=== PATIENT | male | born 1955 | race Caucasian/White ===

== ENCOUNTER 2017-01-20 17:54 | Inpatient (IN) | payer OTHER ==
[~2017-01-20] VITALS: Ht 182.9 cm; Wt 64.5 kg
[2017-01-20 19:10] VITALS: BP 129/70; PULSE 64; RESP 18; O2SAT 98
[2017-01-20] MEDS ORDERED: IBUP200C PO (20:46)
[2017-01-20] MEDS ORDERED: MULT-1018 PO (20:46)
[2017-01-20] MEDS ORDERED: POLY17PO6 PO (20:47)
[2017-01-20] MEDS ORDERED: Alum-Mag Hydrox-Simeth 30 mL Suspension PO PRN (21:30)
[2017-01-20] MEDS ORDERED: Ondansetron 2 mg/mL 2 mL Inj IVPUSH PRN (21:30)
[2017-01-20] MEDS ORDERED: Polyethylene Glycol (PEG) 17 Gm Powder PO PRN (21:30)
[2017-01-20 23:16] LABS: BASOPHILS % (AUTO) 0.1 % (0-3); EOSINOPHILS % (AUTO) 0.4 % (0-5); MONOCYTES % (AUTO) 4.7 % (4-12); Mean Corpuscular Hemoglobin 30.1 pg (27.0-35.0); Mean Corpuscular Volume 90.3 fL (81-100); Platelet Count 363 bil/L (150-400)
--- NOTE | 2017-01-20 23:22 | PCM.HPMED ---
Subjective Date of Service Jan 20, 2017 Primary Provider: Admitting Physician: Sawyer Patel DO Primary Care Physician: Anthony Gomez MD Attending Physician: Sawyer Patel DO Admit Status: Direct Admit (transfer from [place]) Chief Complaint: Abdominal pain and jaundice History of Present Illness: 61yo Patient who is been fairly healthy his entire life other than heavy alcohol use and tobacco use disorder as well as 2 spontaneous pneumothorax 20 years prior requiring pleurodesis presents with 6 weeks of abdominal pain and jaundice. The patient states that approximately 6 weeks ago he began to notice yellowing of his skin and the abdominal pain. The patient describes the abdominal pain as 12 out of 10 at its worst and lasting 12 hours at its longest however normally approximately 6 hours. The patient states that the duration of the pain has been increasing over the last 6 weeks. The patient describes the pain becoming worse with eating and improves after having a bowel movement. The patient states that the pain seems to move through his abdomen as the food moves through his intestines. The patient denies any history of this previously. Since the patient became jaundiced he has also noticed a firm mass in his epigastrium with some distention of his abdomen. The patient has reportedly lost approximately 20 pounds over the last 6 months. The patient reports drinking upwards to 1 pint of vodka daily for at least the last 5 years prior to this he was a regular daily alcohol consumer. The patient quit drinking when he began to notice the jaundice. Review of Systems: A comprehensive review of systems was obtained and all are negative except for what is included in the history of present illness. 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 2 spontaneous left-sided pneumothorax at 38 and 41 years old the second requiring pleurodesis Tobacco dependency Prior history of alcohol use disorder Surgical History Left-sided pleurodesis 41 years old Left ear surgery at 8 years old Family History Father was a heavy smoker and had lung cancer and in his early 70s Mother had congestive heart failure and in her early 70s Patient denies family history of heart attacks, strokes, blood clots Social History 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 Hx Alcohol Use: Yes (quit in early December 2016, pint of vodlka per day) Hx Substance Use: Yes (marijuana) Hx Tobacco Use: Yes Smoking Status: Heavy Tobacco Smoker Years of Smokin Exam Vital Signs Vital Sign - Last Date Time Temp Pulse Resp B/P Pulse Ox O2 Delivery O2 Flow Rate FiO2 01/20/17 19:10 36.6 64 18 129/70 98 Room Air Exam Gen.: Cachectic male chronically ill appearing and severely jaundiced in no acute distress lying in bed Eyes: with left pupil larger than right pupil, icteric sclera noninjected conjunctiva HENT: Normocephalic atraumatic, oropharynx clear without central cyanosis or cobblestoning mucosa, tongue is asymmetric with dark brown petechial discoloration in the posterior aspects, poor dentition noted, sublingual jaundice Neck: Supple, trachea appears midline, no thyromegaly or JVD noted Cardiovascular: Regular rate and rhythm without murmurs rubs or gallops noted Lungs: Clear to auscultation bilaterally without wheezing rales or rhonchi noted Abdomen: Mild pitting edema noted over abdomen, Guarding with tenderness to palpation in right and left upper quadrants, firm mass noted in the epigastrium approximately baseball size, no tenderness to palpation in lower quadrants bilaterally, hypoactive bowel sounds noted Extremities: Moderate 3+ pitting edema noted inferior to knees bilaterally with mild weeping of serous sanguinous fluid from generalized excoriations, pulses intact bilaterally at dorsalis pedis : No Hansen in place Skin: Diffuse jaundice noted, single telangiectasia/spider hemangioma noted in epigastrium of abdomen, no periumbilical varicosities, weeping skin from excoriation noted in lower extremities bilaterally Neuro: Nonfocal, cranial nerves II through XII grossly intact with noted Anisocoria described above, 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 # Possible spontaneous bacterial peritonitis - Patient has pain on palpation of his abdomen but has denied symptoms of acute infection including worsening fever or chills or night sweats or diarrhea - Patient has leukocytosis white blood cell count 14,000, neutrophil predominance of 89% and a pro-calcitonin of 1.1 making bacterial infection possible - Ultrasound-guided paracentesis ordered with recommendations for routine labs including cell count with differential, cytology, LDH, glucose, culture and Gram stain, albumin and total protein at a minimum - Blood cultures ordered and pending - Acute hepatitis panel ordered and pending - Day team to consider infectious disease consult # Acute liver failure - Patient describes a timeline of approximately 6 weeks of worsening jaundice and abdominal pain - Patient has an extensive history of alcohol ingestion making the likely cause alcoholic hepatitis - Labs include elevated total bilirubin 24.1, AST 155, ALT 159, Alkaline phosphatase 1322, low albumin 2.7, ammonia of 170, INR of 2.04 all point to significant liver injury - Patient has an elevated ferritin level of 3841 making iron overload and hemachromatosis possibility - Acute hepatitis panels ordered - ordered Lactulose 20 mg daily given elevated ammonia level with chronic constipation - Abdominal ultrasound ordered - Patient was a transfer from [facility] with reported CT imaging showing possible metastatic disease, order placed for community youth secretary to obtain images from [facility] as they are currently not shown in [facility] - Discriminant function score for alcoholic hepatitis if considered the likely diagnosis is approximately 80.2 (if PT control is considered near 10) giving a very poor prognosis - Day team to consider steroid versus Pentoxifylline use given discriminant function score is greater than 32, after obtaining images from [facility] to rule out metastatic disease causing liver failure [facility] 9, which is considered more accurate than MELD, gives a poor 28 and 84 survival - Day team to consider GI consult # Notable epigastric mass - The patient states that he has been losing weight recently but denies night sweats - Patient was a transfer from [facility] with reported CT imaging showing possible metastatic disease, order placed for community youth secretary to obtain images from [facility] as they are currently not shown in [facility] - Abdominal ultrasound ordered # Notable proteinuria - UA shows protein of 30 with glucose of 100 and given high serum bilirubin also positive ictotest and urine bilirubin - Given patient's lack of healthcare considered diabetic nephropathy possible - Hemoglobin A1c ordered - Random urine protein creatinine ratio ordered - Patient's serum creatinine 0.30 makes significant kidney disease less likely # Likely Anemia of chronic disease - Hemoglobin of 9.3 - Low TIBC of 183 with elevated ferritin of 3040 and normal iron and normal percent saturation # Hypokalemia - Likely secondary to recent anorexia - Potassium rider ordered through peripheral IV - Monitor # Mildly elevated lipase - Lipase of 90 - Diagnosis of pancreatitis is unlikely as it is usually considered diagnostic at 3 times normal or near 180 - monitor DVT prophylaxis: Heparin 5000 units 3 times a day given likely coagulopathy from hepatic failure GI prophylaxis: Pantoprazole 40 mg twice a day CODE STATUS: Full code Patient is admitted to inpatient status with expected length of stay greater than two midnights given presenting symptoms, likely diagnoses, possible complications, and required treatments Pain Evaluation: Adequate Pain Control GI Prophylaxis: Proton Pump Inhibitor VTE Prophylaxis Indicated: Meets Criteria for Anticoag Therapy VTE Prophylaxis: Sub-Q Heparin (Unfractionated) Resuscitation Status: CPR: Attempt Resuscitation Attending Statement The patient was seen and examined together with Dr. Benitez on 01/20 and I agree with the history, exam and plan as outlined in the note above. Chinedu Muniz DO Jan 20, 2017 23:22 Angel Joaquin MD Jan 21, 2017 19:49
[2017-01-20 23:35] LABS: INR 2.04 ratio
[2017-01-20 23:48] LABS: Unsaturated Iron Binding 112.5 ug/dL
[2017-01-20 23:51] LABS: Magnesium 2.3 mg/dL (1.6-2.6)
[2017-01-20] MEDS: fentaNYL-PF 50 mCg/mL 2 mL Inj IV PRN (23:51)
[2017-01-21] VITALS (7 sets, daily range): BP systolic 132–147; BP diastolic 79–90; PULSE 64–85; RESP 18; O2SAT 97–99
[2017-01-21] MEDS: Heparin 5,000 Unit/mL Inj SUBQ SCH ×4 (00:30→23:44)
[2017-01-21] MEDS ORDERED: Potassium Chloride Inj 40 MEQ in 0.9% Sodium Chloride 500 ML IV ONE (01:05)
[2017-01-21 02:00] LABS: APPEARANCE,URINE TURBID (CLEAR,HAZY); COLOR,URINE AMBER (YELLOW); ICTOTEST,URINE POSITIVE (Negative); OCCULT BLOOD,URINE TRACE (NEGATIVE); PH,URINE 6.5 (5.0-8.0)
--- NOTE | 2017-01-21 06:27 | NUR ---
Pain Patient reports "kidney pain" 01/10, patient medicated with one oxycodone 5mg. 30 minutes later patient reports relief of pain. breathing nonlabored. alert and oriented.
--- NOTE | 2017-01-21 06:27 | NUR ---
[place] [facility] [place] Patient alert and orientedx4 able to make needs known. Deaf in left ear. [place] [facility] [place]. Vitals stable. 2 IVs SL. No c/o Pain. Patient oriented to call light and fall safety. SBA from bed to stretcher. Steady gait generalized weakness. Skin jaundiced. Bilateral pitting edema to lower legs. Admission assessment completed. Patient reports no prescription medications due to lack of insurance, he takes over the counter Ibuprofen and x-lax for constipation. Tele in place.
[2017-01-21] MEDS: Pantoprazole 40 mg ER24 Tablet PO SCH ×2 (07:52→19:17)
[2017-01-21] MEDS: Lactulose 20 Gm/30 mL 30 mL Syrup PO SCH (07:53)
[2017-01-21] MEDS: fentaNYL-PF 50 mCg/mL 2 mL Inj IV PRN ×3 (09:08→22:12)
--- NOTE | 2017-01-21 11:55 | DRSVH ---
PROCEDURE: US ABDOMEN INDICATIONS: right upper quadrant pain with increased LFTs TECHNIQUE: Real-time scanning was performed of the abdominal and retroperitoneal organs, with image documentatio n. COMPARISON: None. FINDINGS: Liver length: 20.46 cm Gallbladder Wall Thickness: 3.50 mm CHD: 4.20 mm Spleen length: 9.37 cm Right kidney length: 1.8 cm Left kidney length: 13.26 cm Aorta(Proximal): 2.83 cm Aorta(Mid): 2.95 cm Aorta(Distal): 1.68 cm Liver: Multiple solid liver masses are present throughout the right and left lobe of the liver which are predominantly hypoechoic. Gallbladder: Sludge is present within the gallbladder as well as a solid-appearing mass within the ga llbladder fundus which demonstrates flow with color flow Doppler. Biliary ducts: Intrahepatic bile ducts are dilated. Extrahepatic bile duct is dilated to 22 mm. A v ascular mass is present within the extrahepatic bile duct. Pancreas: Mass involves the head of pancreas measuring roughly 5.3 x 6.0 x 6.4 cm. Spleen: Spleen is normal in size and homogeneous in echotexture. Kidneys: Kidneys are normal in size and echotexture. No hydronephrosis or nephrolithiasis. No svitlana d masses. Aorta: Visualized aorta is normal in caliber at less than 3 cm. Iliacs: Proximal common iliac arteries are normal in caliber at less than 2.5 cm. IVC: Intrahepatic inferior vena cava is patent. Miscellaneous: Right pleural effusion present and minimal perihepatic and lower pelvic fluid with is not sufficient for safe paracentesis. IMPRESSION: 1. Multiple masses noted throughout the liver consistent with metastatic disease. 2. Intra-and extrahepatic ductal dilatation with probable tumor within the bile ducts. 3. Sludge and solid vascular mass within the gallbladder neoplasm suspected. 4. Mass involving head of pancreas also suspicious for neoplasm. 5. Minimal ascites with volume not sufficient for safe paracentesis. 6. Small right pleural effusion. Dictated by: Geronimo LARKIN Interpreted: Lisa Paris MD on 01/21/2017 at 11:48 Transcribed by: ALOK on 01/21/2017 at 11:54 Approved by: Lisa Paris M.D. on 01/21/2017 at 14:58
--- NOTE | 2017-01-21 13:10 | PCM.CONPAL ---
Date of Service Jan 21, 2017 Date of Hospital Admission: Jan 20, 2017 at 19:26 Date of Palliative Consult: Jan 21, 2017 Requesting Provider: Sawyer Patel DO Reason Palliative Care Consult: Pain, Goals of Care Discussion Hospital Unit @time of consult: Medical/Pediatric Care (room 3025) Palliative Care Recommendation Summary of palliative recommendations: -Symptom management: Pain: 1. D/C fentanyl IV as pt able to take po. 2. Start oxycodone 5mg po TID scheduled. 3. Continue oxycodone 5mg for breakthrough pain, but change interval to [id number] as needed. Constipation: 1. Agree with prune juice prn 2. Agree wit lactulose, would titrate up to get daily BM. 3. Add Senna-S 1 po BID to keep strong bowel regimen in place, now that pt will need regular doses of opiates for pain control. -DPOA/Advanced Directives/POLST: 1. Code: listed as FULL in EMR. -Family/emotional support: 1. Pt identifies his son Alan Vergara ("R.JRosa") as the person who is to be his designated decision maker. He trusts to speak for him on all medical questions. He asked Dr. Sharif to call his son JESSE and tell him all about the bad news and get 's opinion on what to do. 01/21: Per discussion with patient today, Dr. Sharif told him that the U/S is definitely showing some kind of widespread cancer, although we cannot know the type unless it is biopsied. We suggested it may be pancreatic or liver primary. We told him that any course of therapy or surgery would be palliative in nature , explaining that it would not cure him, but would possibly postpone his . He wants to "try anything to try almost anything to help me live longer." Specifically, he is willing to have surgery or a stent procedure, even if it means transferring out of the local area to do so. He is not willing to have chemotherapy. JESSE is en route to the hospital, driving up from [place]. He answered Dr. Sharif's phone call and is not surprised by the diagnosis and is very congenial and matter of fact. He supports his father's wishes, and states "we'll help him get through this." Pall Care team will follow for effectiveness of pain management until time of likely transfer. Dr. Sharif has alerted Dr. Patel of patient's wishes. Patient Goals: 1. Patient wants to be told the truth about his/her illness, even if it is unpleasant. 2. Patient would like to be told prognosis when it can be predicted, to better guide treatment decisions. 3. He does not want chemotherapy 4. He would agree to transfer to a tertiary institution to get a procedure or surgery that might help him survive for a while longer. Problems: Resuscitation Status Resuscitation Status: CPR: Attempt Resuscitation POLST Updates/Changes Previous POLST?: No . Pain: Moderate Symptom management: Constipation Pt History History of Present Illness 61yo Patient who is been fairly healthy his entire life other than heavy alcohol use and tobacco use disorder as well as 2 spontaneous pneumothorax 20 years s/p pleurodesis presents with 6 weeks of abdominal pain and jaundice. The patient states that approximately 6 weeks ago he began to notice yellowing of his skin and the abdominal pain. The patient describes the abdominal pain as 12 out of 10 at its worst and lasting 12 hours at its longest however normally approximately 6 hours. The patient states that the duration of the pain has been increasing over the last 6 weeks. The patient describes the pain becoming worse with eating and improves after having a bowel movement. The patient states that the pain seems to move through his abdomen as the food moves through his intestines. The patient denies any history of this previously. Since the patient became jaundiced he has also noticed a firm mass in his epigastrium with some distention of his abdomen. The patient has reportedly lost approximately 20 pounds over the last 6 months. The patient reports drinking upwards to 1 pint of vodka daily for at least the last 5 years prior to this he was a regular daily alcohol consumer. The patient quit drinking when he began to notice the jaundice. 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 Hx Alcohol Use: Yes (quit in early December 2016, pint of vodlka per day) Hx Substance Use: Yes (marijuana) Hx Tobacco Use: Yes Smoking Status: Heavy Tobacco Smoker Years of Smokin Medications Current Medications: Current Medications Oxycodone HCl 5 mg Q4H PRN PO Last administered on 01/21/17 12:35; Admin Dose 5 MG; Start 01/20/17 at 20:50 Heparin Sodium (Porcine) 5,000 unit Q8 SUBQ; Start 01/21/17 at 00:30 Al Hydrox/Mg Hydrox/Simethicone 30 ml Q6H PRN PO; Start 01/20/17 at 21:30 Ondansetron HCl 4 to 8 mg Q4H PRN IVPUSH; Start 01/20/17 at 21:30 Senna 17.2 mg BID PRN PO; Start 01/20/17 at 21:30 Polyethylene Glycol 17 gm DAILY PRN PO; Start 01/20/17 at 21:30 Fentanyl Citrate 25-50 mcg Q3H PRN IV Last administered on 01/21/17 09:08; Admin Dose 25 MCG; Start 01/20/17 at 21:30 Lactulose 20 gm DAILY PO Last administered on 01/21/17 07:53; Admin Dose 20 GM ; Start 01/21/17 at 08:30 Pantoprazole 40 mg BIDAC PO Last administered on 01/21/17 07:52; Admin Dose 40 MG; Start 01/21/17 at 07:30 Nicotine 1 patch DAILY TOPICAL Last administered on 01/21/17 09:08; Admin Dose 1 PATCH; Start 01/21/17 at 08:50 Scheduled Multivitamin (Multi Vitamin Daily) 1 Each Tablet 1 EACH PO DAILY Scheduled PRN Ibuprofen (Ibuprofen) 200 Mg Capsule 600 MG PO DAILY PRN PRN For Pain Objective Findings Exam Vital Sign - Last Date Time Temp Pulse Resp B/P Pulse Ox O2 Delivery O2 Flow Rate FiO2 01/21/17 10:56 36.6 85 18 133/79 98 Room Air Intake and Output 01/20/17 01/20/17 01/21/17 Cumulative From/Thru 15:00 23:00 07:00 01/20/17 19:32 - 01/21/17 06:05 Intake Total 673 ml 673 ml Output Total 275 ml 275 ml Balance 398 ml 398 ml Intake Oral 673 ml 673 ml Output Urine Total 275 ml 275 ml Objective Gen.: Cachectic male chronically ill appearing and severely jaundiced in no acute distress lying in bed HEENT: Normocephalic atraumatic, left pupil > right pupil (anisocoria), icteric sclera noninjected conjunctiva, oropharynx clear,, tongue is asymmetric, poor dentition Neck: Supple, trachea midline, no thyromegaly or JVD noted Cardiovascular: Regular rate and rhythm without murmurs rubs or gallops noted Lungs: Clear to auscultation bilaterally without wheezing rales or rhonchi noted Abdomen: Mild pitting edema noted over abdomen, guarding with tenderness to palpation in right and left upper quadrants, firm mass noted in the epigastrium approximately baseball size, no tenderness to palpation in lower quadrants bilaterally, hypoactive bowel sounds noted Extremities: Moderate 3+ pitting edema noted inferior to knees bilaterally : No Hansen in place Skin: Diffuse jaundice noted, single telangiectasia/spider hemangioma noted in epigastrium of abdomen, no periumbilical varicosities, weeping of sero- sanguinous fluid from excoriations of lower extremities bilaterally Neuro: Nonfocal, cranial nerves II through XII grossly intact, strength intact patient escort Psych: Normal mood and affect Lab/Diagnostics PROCEDURE: US ABDOMEN INDICATIONS: right upper quadrant pain with increased LFTs FINDINGS: Liver: Multiple solid liver masses are present throughout the right and left lobe of the liver which are predominantly hypoechoic. Gallbladder: Sludge is present within the gallbladder as well as a solid- appearing mass within the gallbladder fundus which demonstrates flow with color flow Doppler. Biliary ducts: Intrahepatic bile ducts are dilated. Extrahepatic bile duct is dilated to 22 mm. Tumor thrombus present within the extrahepatic bile duct. Pancreas: Mass involves the head of pancreas measuring roughly 5.3 x 6.0 x 6.4 cm. Spleen: Spleen is normal in size and homogeneous in echotexture. Kidneys: Kidneys are normal in size and echotexture. No hydronephrosis or nephrolithiasis. No solid masses. Aorta: Visualized aorta is normal in caliber at less than 3 cm. Iliacs: Proximal common iliac arteries are normal in caliber at less than 2.5 cm. IVC: Intrahepatic inferior vena cava is patent. Miscellaneous: Right pleural effusion present and minimal perihepatic and lower pelvic fluid with is not sufficient for safe paracentesis. IMPRESSION: 1. Multiple masses noted throughout the liver consistent with metastatic disease. 2. Intra-and extrahepatic ductal dilatation with tumor thrombus within the bile ducts. 3. Sludge and solid vascular mass within the gallbladder neoplasm suspected. 4. Mass involving head of pancreas also suspicious for neoplasm. 5. Minimal ascites with volume not sufficient for safe paracentesis. 6. Small right pleural effusion. Dictated by: Geronimo LARKIN Interpreted: Lisa Paris MD on 01/21/2017 at 11:48 Time spent Total time 70 minutes; >50% face to face with patient and/or family, providing counselling regarding plans and recommendations, and in care coordination with his/her medical teams. copies to: Anthony Gomez MD [facility] MD Jan 21, 2017 13:10
--- NOTE | 2017-01-21 13:36 | NUR ---
Palliative Care Palliative Care received verbal order from Dr Patel 01/21/17. Patient admitted 01/20/17. Palliative Care to follow. Sisi Sky
[2017-01-21] MEDS: Senna-Docusate 8.6-50 mg Tablet PO SCH ×2 (14:52→19:17)
--- NOTE | 2017-01-21 14:59 | CONS ---
[address] [address] CONSULTATION REPORT PATIENT: LEIGH CAMPUZANO : 1955 MR#: [id number] ADMIT: 01/20/2017 JOB ID: [id number] DATE OF SERVICE: 01/21/2017 It was a pleasure seeing the patient at [facility] for evaluation of jaundice. This is a 61-year-old gentleman who says he was healthy and has not seen a doctor due to his good health but has a history of heavy alcohol use and tobacco use, which caused COPD with two spontaneous pneumothoraces requiring pleurodesis comes in with two month history of abdominal pain and two weeks of jaundice. He said about 2-4 weeks ago, he may have gotten a little bit yellow but he did not notice it but, however, two weeks ago he noticed that he was definitively getting jaundiced. But, he has also been having diffuse abdominal pain for six weeks which is slowly getting worse. He also noticed increased distention of the abdomen in the past several weeks as well. Abdominal pain is described as constant, throbbing pain which was intermittent and now constant. It was 10/10 at worse and he currently with the pain medication is a lot better. His abdominal pain became worse after eating, improves after a bowel movement and he stopped drinking recently because of the abdominal pain. He also reports significant weight loss and he is currently denying any fever, chills, headaches, blurred vision, dizziness, lightheadedness, chest pain. He is somewhat short of breath. Abdominal pain as described above. Denies any blood in the stools, black stools. PAST MEDICAL HISTORY: 1. Deafness. 2. Spontaneous pneumothorax requiring pleurodesis. 3. Tobacco dependency. 4. Alcohol use. SURGERY: Ear surgery. FAMILY HISTORY: Lung cancer. 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 Does drink alcohol. Pint of vodka a day for at least five years. Marijuana, tobacco use. MEDICATIONS: Here include Fentanyl, nicotine, lactulose, pantoprazole, oxycodone, heparin, senna, Zofran, Maalox. PHYSICAL EXAMINATION: The patient is alert, oriented, does appear comfortable even though his abdominal pain is there but it is a lot better according to the patient. Temperature 36.6, pulse 85, respirations 18, blood pressure 133/79. Head and neck: Does have icterus. No lymphadenopathy. Lungs: Decreased breath sounds with wheezing diffusely. Cardiovascular: Tachycardic, normal S1, S2. Abdomen: Soft, distended, diffuse tenderness. No guarding, rebound or firmness. Extremities: No pitting edema of the ankles. Skin shows significant jaundice. LABORATORY DATA: White count 14,000, hemoglobin 9.3, platelets are 363,000. INR is 2.04. Chemistry shows total bili of 23.2. AST 165, ALT 157, alk phos 1183. Total protein 5.1, albumin 2.7. Ferritin 3841, iron 70, TIBC 183, 38% saturation. BUN 24, creatinine 0.3. IMAGING: Shows that he had an ultrasound which showed multiple masses noted throughout the liver content but metastasis intra/ extrahepatic ductal dilation with tumor thrombus within the bile duct, sludge and solid vascular mass in the gallbladder. The mass involving the head of the head of the pancreas. Minimal ascites. Right pleural effusion. IMPRESSION: This is a gentleman with masses in the liver, gallbladder, common bile duct as well as the pancreas. Extrahepatic ducts are dilated. Intrahepatic ducts are dilated. Extrahepatic ducts are dilated up to 22 mm and again tumor thrombus present and this is probably causing the obstructive jaundice. The differential for malignancy could be gallbladder, pancreas, cholangiocarcinoma. Would need MRI MRCP to see the extent. However, prognosis is poor. I do not perform ERCPs. However, there is an indication for stenting, but MRCP probably needs to be done before that. To do this, he needs to be transferred to a tertiary care center such as [facility]. I would start him on antibiotics such as Levaquin and consider oncology evaluation and tissue biopsy. In terms of what we can do here, I do not have anything that I could offer him here to relieve the ductal obstruction and it appears that they are not able to tap the ascites. However, I think the ascites is most likely due to malignant ascites. MTDD
--- NOTE | 2017-01-21 16:11 | NUR ---
Social Work-screening: Data:EMR reviewed. Pt is a 61 y/o male who was admitted on 01/20/17 for liver failure per H&P. Pt's insurance is Self pay and PCP is Anthony Gomez MD. SW attempted to see pt today to discuss discharge planning and discuss lack of insurance. Palliative care currently in the room. If would like SW to see pt for CD, order will need to be placed. SW to follow up tomorrow to complete assessment. SW will continue to follow. Assessment:Pt who is independent at baseline. Plan:Pt to likely discharge home when medically stable. SW to follow up with pt tomorrow to discuss lack of insurance. If would like SW to see pt for CD, order will need to be placed.SW will continue to follow. NITIN Smith
[2017-01-21] MEDS ORDERED: levoFLOXacin Inj 750 MG in IV Premix 1 EACH IV SCH (18:00)
--- NOTE | 2017-01-21 19:16 | PCM.PNMED ---
Subjective Date of Service Jan 21, 2017 Subjective Patient continues to have significant distress due to abdominal pain. Remains nauseated again he believes pain is playing a role. This is his main complaint at this time. Still having normal stooling and bladder functioning. Denies fever chills or sweats. Exam Vital Signs Vital Sign - Last Date Time Temp Pulse Resp B/P Pulse Ox O2 Delivery O2 Flow Rate FiO2 01/21/17 16:07 36.7 75 18 147/85 98 Room Air Intake and Output 01/20/17 01/20/17 01/21/17 Cumulative From/Thru 15:00 23:00 07:00 01/20/17 19:32 - 01/21/17 06:05 Intake Total 673 ml 673 ml Output Total 275 ml 275 ml Balance 398 ml 398 ml Intake Oral 673 ml 673 ml Output Urine Total 275 ml 275 ml General: Alert, Oriented X3, Cooperative, Moderate Distress, Other (patient is diffusely jaundiced most pronounced in head and trunk. ) Eyes: Scleral Icterus Mouth: Mucous Membranes Dry Chest & Lungs: Clear to auscultation & percussion, Other (administer phone crackles noted in lung bases. ) Cardiovascular: Regular Rate/Rhythm Abdomen: Tender, Distended, Other (the palpation could not be conducted due to patient discomfort) Neurological: Grossly Neurologically Intact, Cranial Nerves 2-12 Intact IVs and Medications Medications Reviewed: Medications were reviewed in detail Lab and Diagnostics Result Diagram: 01/20/17 2300 01/21/17 0815 X-Rays, CTs and MRIs Reportedly CT performed at [facility] currently unable to find in Web ambassador Assessment & Plan 61yo Patient who is been fairly healthy his entire life other than heavy alcohol use and tobacco use disorder as well as 2 spontaneous pneumothorax 20 years prior requiring pleurodesis presents with 6 weeks of abdominal pain and jaundice. # Possible spontaneous bacterial peritonitis/cholangitis. - Patient has pain on palpation of his abdomen but has denied symptoms of acute infection including worsening fever or chills or night sweats or diarrhea - Patient has leukocytosis white blood cell count 14,000, neutrophil predominance of 89% and a pro-calcitonin of 1.1 making bacterial infection possible - Ultrasound-guided paracentesis ordered with recommendations for routine labs including cell count with differential, cytology, LDH, glucose, culture and Gram stain, albumin and total protein at a minimum - Blood cultures ordered and pending -We have initiated Levaquin not specifically for bacterial peritonitis rather for possible coverage of cholangitis, this will be offered good coverage for most gastrointestinal type infections. # Acute liver failure/intraperitoneal masses/biliary obstruction - Patient describes a timeline of approximately 6 weeks of worsening jaundice and abdominal pain - Patient has an extensive history of alcohol ingestion making the likely cause alcoholic hepatitis - Labs include elevated total bilirubin 24.1, AST 155, ALT 159, Alkaline phosphatase 1322, low albumin 2.7, ammonia of 170, INR of 2.04 all point to significant liver injury - Patient has an elevated ferritin level of 3841 making iron overload and hemachromatosis possibility - Acute hepatitis panels ordered - ordered Lactulose 20 mg daily given elevated ammonia level with chronic constipation - Abdominal ultrasound ordered, demonstrating multiple hepatic masses likely obstructing as they are involving bile ducts. - Patient was a transfer from [place] with reported CT imaging showing possible metastatic disease, order placed for hospital unit clerk to obtain images from [place] as they are currently not shown in Web ambassador, we continue to await the push of these records so they may be reviewed. Again reaching out [facility] - GI consult and agrees prognosis is poor, suggest initiation of Levaquin mentioned above, project consult was unable to do ERCPs and has little else to offer at this time aside from recommendations of palliation. - I have contacted interventional radiology, a plan to review CT images and may be able to place percutaneous drain to aid in the blockage of bile ducts and hepatic drainage. - This will be revisited in a.m. following review of CT scan was received. - Transfer to tertiary care facility may still be required even for palliative measures such as bile drainage and hepatic stenting she will be unable to conduct this via interventional radiology techniques. #Refractory abdominal pain - Very likely related to masses noted above, the definitive treatment remains unclear patients certainly need of more aggressive pain management. - Palliative care has been consulted both for further discussion of patient's prognosis and possible courses of action in addition to recommendations for adequate pain management. - We appreciate their assistance in this challenging case. # Notable proteinuria - UA shows protein of 30 with glucose of 100 and given high serum bilirubin also positive ictotest and urine bilirubin - Anticipate this is the result highly elevated bilirubin and the blood, further etiologies considered following treatment of above condition, and ideally resolution of hyperbilirubinemia, are very least improvement. # Likely Anemia of chronic disease - Hemoglobin of 9.3 - Low TIBC of 183 with elevated ferritin of 3040 and normal iron and normal percent saturation # Hypokalemia - Likely secondary to recent anorexia - Potassium rider ordered through peripheral IV - Monitor, replete as needed. # Mildly elevated lipase - Lipase of 90 - Diagnosis of pancreatitis is unlikely as it is usually considered diagnostic at 3 times normal or near 180 - monitor, more likely a result of pancreatic mass. DVT prophylaxis: Heparin 5000 units 3 times a day given likely coagulopathy from hepatic failure GI prophylaxis: Pantoprazole 40 mg twice a day CODE STATUS: Full code Patient is admitted to inpatient status with expected length of stay greater than two midnights given presenting symptoms, likely diagnoses, possible complications, and required treatments Pain Evaluation: Pain not Controlled GI Prophylaxis: Proton Pump Inhibitor VTE Prophylaxis: Sub-Q Heparin (Unfractionated) Resuscitation Status: CPR: Attempt Resuscitation Time spent 30 minutes Sawyer Patel DO Jan 21, 2017 19:16
--- NOTE | 2017-01-21 21:37 | NUR ---
Consults Ultrasound this shift. GI consult and palliative care consult. Plan is to follow up with Dr Santos this Thursday. Tele in place at this time.
[2017-01-22] VITALS (8 sets, daily range): BP systolic 125–160; BP diastolic 68–88; PULSE 67–74; RESP 18; O2SAT 96–100
--- NOTE | 2017-01-22 03:56 | NUR ---
Sleep Patient reported that he hasn't slept well for days, but then slept from about midnight to 0345. When patient woke up, he said that he hasn't slept that long in awhile and was pretty excited. Reported abdominal pain at this time 2/10, declined pain medications. Alert and oriented, using call light appropriately for needs, intentional rounding in place.
[2017-01-22 04:09] LABS: Hepatitis A Antibody IgM Negative (Negative); Hepatitis B Core Antibody IgM Negative (Negative)
[2017-01-22 06:17] LABS: BASOPHILS % (AUTO) 0.1 % (0-3); EOSINOPHILS % (AUTO) 0.6 % (0-5); MONOCYTES % (AUTO) 4.3 % (4-12); Mean Corpuscular Hemoglobin 30.4 pg (27.0-35.0); NEUTROPHILS % (AUTO) 88.1 % (40-74); Platelet Count 313 bil/L (150-400)
[2017-01-22] MEDS: Pantoprazole 40 mg ER24 Tablet PO SCH (08:47)
[2017-01-22] MEDS: Potassium Chloride 20 mEq SR Tablet PO SCH (08:48)
[2017-01-22] MEDS: Heparin 5,000 Unit/mL Inj SUBQ SCH ×2 (08:48→17:29)
[2017-01-22] MEDS: Senna-Docusate 8.6-50 mg Tablet PO SCH ×2 (08:48→20:31)
[2017-01-22] MEDS: Lactulose 20 Gm/30 mL 30 mL Syrup PO SCH (08:48)
--- NOTE | 2017-01-22 12:20 | NUR ---
Pain/BM Pt reports abdominal pain level 5/10 on pain scale, requesting additional pain medication. Rx given as requested. Pt did have large bowel movement mid morning, sts is feeling better regarding concerns r/t elimination. Call light in place, will continue to monitor.
--- NOTE | 2017-01-22 14:06 | PCM.PNMED ---
Subjective Date of Service Jan 22, 2017 Subjective Patient has experienced significant improvement over past 24 hours, most specifically to improve pain control. Appetite is much improved is tolerating good food and fluid. Exam Vital Signs Vital Sign - Last Date Time Temp Pulse Resp B/P Pulse Ox O2 Delivery O2 Flow Rate FiO2 01/22/17 13:27 36.4 68 18 160/88 100 Room Air Intake and Output 01/21/17 01/21/17 01/22/17 Cumulative From/Thru 15:00 23:00 07:00 01/20/17 19:32 - 01/22/17 06:11 Intake Total 550 ml 685 ml 200 ml 2108 ml Output Total 450 ml 225 ml 950 ml Balance 550 ml 235 ml -25 ml 1158 ml Intake Oral 525 ml 200 ml 1398 ml IV Total 550 ml 160 ml 710 ml Output Urine Total 450 ml 225 ml 950 ml # Bowel Movements 1 1 Exam General: Alert, Oriented X3, Cooperative, no acute Distress, patient is diffusely jaundiced most pronounced in head and trunk. Eyes: Scleral Icterus Mouth: Mucous Membranes Dry Chest & Lungs: Clear to auscultation & percussion, crackles noted in lung bases. Cardiovascular: Regular Rate/Rhythm Abdomen: Tender, Distended, large mass palpable and left upper quadrant Neurological: Grossly Neurologically Intact, Cranial Nerves 2-12 Intact IVs and Medications Medications Reviewed: Medications were reviewed in detail Lab and Diagnostics Result Diagram: 01/22/17 0553 01/22/17 0553 X-Rays, CTs and MRIs Reportedly CT performed at [facility] currently unable to find in Web ambassador Assessment & Plan 61yo Patient who is been fairly healthy his entire life other than heavy alcohol use and tobacco use disorder as well as 2 spontaneous pneumothorax 20 years prior requiring pleurodesis presents with 6 weeks of abdominal pain and jaundice. # Possible spontaneous bacterial peritonitis/cholangitis. - Patient has pain on palpation of his abdomen but has denied symptoms of acute infection including worsening fever or chills or night sweats or diarrhea - Patient has leukocytosis white blood cell count 14,000, neutrophil predominance of 89% and a pro-calcitonin of 1.1 making bacterial infection possible - Ultrasound-guided paracentesis ordered with recommendations for routine labs including cell count with differential, cytology, LDH, glucose, culture and Gram stain, albumin and total protein at a minimum - Blood cultures ordered and pending -We have initiated Levaquin not specifically for bacterial peritonitis rather for possible coverage of cholangitis, this will be offered good coverage for most gastrointestinal type infections. # Acute liver failure/intraperitoneal masses/biliary obstruction - Patient describes a timeline of approximately 6 weeks of worsening jaundice and abdominal pain - Patient has an extensive history of alcohol ingestion making the likely cause alcoholic hepatitis - Labs include elevated total bilirubin 24.1, AST 155, ALT 159, Alkaline phosphatase 1322, low albumin 2.7, ammonia of 170, INR of 2.04 all point to significant liver injury = Bilirubin is now downward trending. - Patient has an elevated ferritin level of 3841 making iron overload and hemachromatosis possibility - Acute hepatitis panels ordered - ordered Lactulose 20 mg daily given elevated ammonia level with chronic constipation - Abdominal ultrasound ordered, demonstrating multiple hepatic masses likely obstructing as they are involving bile ducts. - Patient was a transfer from [place] with reported CT imaging showing possible metastatic disease, order placed for hospital unit coordinator to obtain images from [place] as they are currently not shown in Web ambassador, we continue to await the push of these records so they may be reviewed. Again reaching out [facility] - GI consult and agrees prognosis is poor, suggest initiation of Levaquin mentioned above, project consult was unable to do ERCPs and has little else to offer at this time aside from recommendations of palliation. - I have contacted interventional radiology, a plan to review CT images and may be able to place percutaneous drain to aid in the blockage of bile ducts and hepatic drainage. - This will be revisited in a.m. following review of CT by interventionalists able to do procedure who is not here today - On patient request we will be consulting oncology for further assistance in understanding patient's diagnosis in addition to subsequent recommendations related to possible palliative treatment options - Transfer to tertiary care facility may still be required even for palliative measures such as bile drainage and hepatic stenting she will be unable to conduct this via interventional radiology techniques. #Refractory abdominal pain - Very likely related to masses noted above, the definitive treatment remains unclear patients certainly need of more aggressive pain management. - Palliative care has been consulted both for further discussion of patient's prognosis and possible courses of action in addition to recommendations for adequate pain management. - We appreciate their assistance in this challenging case. - Significant alleviation of symptoms has been achieved # Notable proteinuria - UA shows protein of 30 with glucose of 100 and given high serum bilirubin also positive ictotest and urine bilirubin - Anticipate this is the result highly elevated bilirubin and the blood, further etiologies considered following treatment of above condition, and ideally resolution of hyperbilirubinemia, are very least improvement. # Likely Anemia of chronic disease - Hemoglobin of 9.3 - Low TIBC of 183 with elevated ferritin of 3040 and normal iron and normal percent saturation # Hypokalemia - Likely secondary to recent anorexia - Potassium rider ordered through peripheral IV - Monitor, replete as needed. # Mildly elevated lipase - Lipase of 90 - Diagnosis of pancreatitis is unlikely as it is usually considered diagnostic at 3 times normal or near 180 - monitor, more likely a result of pancreatic mass. DVT prophylaxis: Heparin 5000 units 3 times a day given likely coagulopathy from hepatic failure GI prophylaxis: Pantoprazole 40 mg twice a day CODE STATUS: Full code Patient is admitted to inpatient status with expected length of stay greater than two midnights given presenting symptoms, likely diagnoses, possible complications, and required treatments Pain Evaluation: Adequate Pain Control GI Prophylaxis: Proton Pump Inhibitor VTE Prophylaxis: Sub-Q Heparin (Unfractionated) Resuscitation Status: CPR: Attempt Resuscitation Time spent 30 minutes Sawyer Patel DO Jan 22, 2017 14:06
--- NOTE | 2017-01-22 15:15 | PCM.PALLBR ---
Palliative Care Recommendation Summary of palliative recommendations: -Symptom management: Pain: 1. D/C fentanyl IV as pt able to take po. 2. Increase oxycodone to 10mg po TID scheduled. 3. Continue oxycodone 5mg for breakthrough pain, with breakthrough interval to [id number] as needed. Constipation: 1. Agree with prune juice prn 2. Agree wit lactulose, would titrate up to get daily BM. (Noted today that he had 2 good bowel movements just before I arrived) 3. Add Senna-S 1 po BID to keep strong bowel regimen in place, now that pt will need regular doses of opiates for pain control. -DPOA/Advanced Directives/POLST: 1. Per his wishes today, CODE STATUS changed to DO NOT RESUSCITATE/DO NOT INTUBATE. He does not express interest in obtaining tissue diagnosis via biopsy and then pursue possibility of palliative chemotherapy as long as it does not make him severely nauseated, causes her to follow-up, etc. Discussed in detail with his hospitalist will contact oncology and IR -Family/emotional support: 1. Pt identifies his son Alan Vergara ("Marsha") as the person who is to be his designated decision maker. He trusts to speak for him on all medical questions. He asked Dr. Sharif to call his son JESSE and tell him all about the bad news and get RJ's opinion on what to do. 01/21: Per discussion with patient today, Dr. Sharif told him that the U/S is definitely showing some kind of widespread cancer, although we cannot know the type unless it is biopsied. We suggested it may be pancreatic or liver primary. We told him that any course of therapy or surgery would be palliative in nature , explaining that it would not cure him, but would possibly postpone his . He wants to "try anything to try almost anything to help me live longer." Specifically, he is willing to have surgery or a stent procedure, even if it means transferring out of the local area to do so. He is also willing to have chemotherapy as long as it did not make him miserable. JESSE is en route to the hospital, driving up from [place]. He answered Dr. Sharif's phone call and is not surprised by the diagnosis and is very congenial and matter of fact. He supports his father's wishes, and states "we'll help him get through this." Pall Care team will follow for effectiveness of pain management until time of likely transfer. Dr. Sharif has alerted Dr. Patel of patient's wishes. Patient Goals: 1. Patient wants to be told the truth about his illness, even if it is unpleasant. 2. Patient would like to be told prognosis when it can be predicted, to better guide treatment decisions. 3. He would accept chemotherapy if it was benign/well-tolerated Additional diagnoses with primary management by the hospitalist service include: # Possible spontaneous bacterial peritonitis/cholangitis. # Acute liver failure/intraperitoneal masses/biliary obstruction # Notable proteinuria # Likely Anemia of chronic disease # Hypokalemia # Mildly elevated lipase Problems: End of Life Preferences Now interested in considering palliative chemotherapy. Does clarify his CODE STATUS which is now DO NOT RESUSCITATE/DO NOT INTUBATE Goals of Care Quality time with his family Disposition To be determined Resuscitation Status Resuscitation Status: DNR/DNI:Do Not Resuscitate/Intubate POLST Updates/Changes Previous POLST?: No . Advanced Care Planning Address: Code status change Pain: Moderate Symptom management: Pain, Constipation Total time 50 minutes; >50% face to face with patient , providing counselling regarding plans and recommendations, and in care coordination with his medical teams. Of the above total time, 20 minutes counseling for advanced care planning with the patient, reviewing and updating his CODE STATUS Palliative Brief Note Date of Service Jan 22, 2017 . Returned to reevaluate patient. Prior to visiting, reviewed his updated records in the EMR in detail. Spoke with his bedside nurse and received update from previous palliative provider. Also reviewed his case with his hospitalist before and after my visit. When I arrived, he is lying in bed. He is awake, alert and oriented. He says his pain control still falls a little short and he requests an increase in the scheduled oxycodone. He denied any significant side effects from the medication. We spoke at length about his diagnosis and treatment plans. 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 We then talked about the need to get a tissue biopsy so as to plan treatment, and he was very open to the idea of a percutaneous biopsy. Per medicine, he may receive IR percutaneous biliary drainage tomorrow. Medicine will see if tissue biopsy can be carried out at the same time. We talked about advanced directive issues- he noted that he has had a good life , has 2 great sons and recognizes that he is nearing the end of his life. He would like reasonable medical care if it might give him some quality extension, but would not wish to be aggressively resuscitated or wind up on machines. Per this conversation, he agreed to update his CODE STATUS (see above). Jennifer remains interested in the possibility of palliative chemotherapy, not yet ready to transition to purely hospice care. Beyond these decisions, he did not want to say or do much until he could talk over things further with his sons will be arriving later this evening. On exam, he is a cachectic gentleman sitting in bed, jaundiced, but in no distress. Vital signs noted. Remainder of exam remains stable and unchanged from yesterday. Labs and imaging studies reviewed in detail. Calvin Meadows MD Jan 22, 2017 15:15
--- NOTE | 2017-01-22 15:24 | NUR ---
NUTRITION ASSESSMENT: ASSESS: 61 YO male admitted for liver failure, abdominal pain, jaundice and reported 20 lbs weight loss x 6 months. Pt with multiple hepatic masses per imaging and possible spontaneous bacterial peritonitis/cholangitis. Work-up and diagnosis continues at this time. PMHx: Deafness, spontaneous pneumothorax requiring pleurodesis, tobacco and alcohol abuse. LABS: Reviewed. K+ 3.3, Glu 111, AST 132, ALT 143, Alk phos 1107, Ammonia 107, Alb 2.7. MEDS: Reviewed. GI: BM x 1 (01/21) CURRENT WT: 64.4 kg. UBW: 73.5 kg (pt reports 20 lbs wt loss x 6 months or 12.4% BW lost) DIET: Heart Healthy. PO 10-50% EST. NEEDS: 2087-1961 kcals (30-35 kcals/kg BW), 75-95 g protein (1.2-1.5 g/kg BW) NUTRITION DIAGNOSIS: 1.) Inadequate oral intake related to altered GI function as evidenced by liver failure, significant wt loss and po intake of 50% of meals. NUTRITION INTERVENTION: 1.) Will add ensure to all trays. MONITOR / EVAL: PO intake, labs, nutritional status, POC. Follow per high nutritional risk guidelines.
--- NOTE | 2017-01-22 16:52 | PCM.ADCARE ---
Advance Care Planning Note Purpose of Encounter: Date of discussion: 01/21/2017 at 3:30pm Discussed prognosis and possible approaches to dealing with multiple masses of abdomen likely representing metastatic process. Parties in Attendance: Son, Patient, Ex-, myself Decisional Capacity: Pt able to make own decisions, has capacity Subjective: Discussed with patient likely poor prognosis. Without more information, making estimations of life remaining is difficult, but the possibility of months left, regardless of treatment course is not unreasonable. Pt should at least anticipate that he may have only weeks to months to live based on findings this far. He understands this, does not wish to proceed with overly invasive approaches to evaluation or treatment, quality of life, and as much time as he can have with his family is of paramount importance. Objective: Noted on exam note from same date as ACP, 01/21/2017. Goals of Care Determinations: We will consider minimally invasive methods of both diagnosis and treatment. May consider further consultation for additional opinion Refrain from transfer to tertiary care facility if possible to facilitate ease of family visits. Plan: IR guided drainage of gallbladder if possible, with marta percutaneous biopsy to aid in diagnosis Will consider oncology consult further Continue to manage pain and maximize comfort as possible with oral and IV medications. CODE STATUS: Was Full code day of discuss. Reconsidered today, day of documentation, now DNR/ DNI. Time Spent Adv.Care Plannin minutes Adv. Care Plan Documenation: POLST completed by palliative care. Sawyer Patel DO Jan 22, 2017 16:52
[2017-01-22] MEDS: levoFLOXacin 750 mg Tablet PO SCH (17:29)
--- NOTE | 2017-01-22 20:54 | PCM.PNMED ---
Subjective Date of Service Jan 22, 2017 Subjective Patient tolerating diet and he said his abdominal pain is gone today. Bilirubin is improving. Exam Vital Signs Vital Sign - Last Date Time Temp Pulse Resp B/P Pulse Ox O2 Delivery O2 Flow Rate FiO2 01/22/17 20:16 36.2 74 18 140/72 96 Room Air Intake and Output 01/21/17 01/21/17 01/22/17 Cumulative From/Thru 15:00 23:00 07:00 01/20/17 19:32 - 01/22/17 06:11 Intake Total 550 ml 685 ml 200 ml 2108 ml Output Total 450 ml 225 ml 950 ml Balance 550 ml 235 ml -25 ml 1158 ml Intake Oral 525 ml 200 ml 1398 ml IV Total 550 ml 160 ml 710 ml Output Urine Total 450 ml 225 ml 950 ml # Bowel Movements 1 1 Exam Patient is alert oriented does appear comfortable. Head and neck icterus Lungs decreased sounds Vascular regular rate and rhythm, S1-S2. Abdomen soft nontender mildly distended normoactive bowel sounds Skin shows jaundice Lab and Diagnostics Result Diagram: 01/22/17 0553 01/22/17 0553 X-Rays, CTs and MRIs Reportedly CT performed at [facility] currently unable to find in Web ambassador Assessment & Plan 61yo Patient who is been fairly healthy his entire life other than heavy alcohol use and tobacco use disorder as well as 2 spontaneous pneumothorax 20 years prior requiring pleurodesis presents with 6 weeks of abdominal pain and jaundice. Patient found pain is improved. In fact his abdominal pain he said is almost gone. He is tolerating his diet. I was informed that radiology did not think the fluid in the abdomen could be Safely. LFTs improving. I think what happened was that there was a thickened blockage of the bile ducts from the tumor and there is a transient relief. He can potentially have ERCP done and placed a metallic stent. We do not have this capability here. There are thank you wanting a percutaneous drainage of the gallbladder. I spoke to the pros and cons of stent versus a percutaneous drainage to the primary care doctor and he said he will review and discuss with the patient. This would be a palliative treatment. GI Prophylaxis: Proton Pump Inhibitor VTE Prophylaxis: Sub-Q Heparin (Unfractionated) Resuscitation Status: DNR/DNI:Do Not Resuscitate/Intubate Rocky Fleming MD Jan 22, 2017 20:54
[2017-01-23] MEDS: Heparin 5,000 Unit/mL Inj SUBQ SCH ×3 (00:21→16:48)
[2017-01-23 00:22] VITALS: BP 152/81; PULSE 72; RESP 18; O2SAT 97
[2017-01-23 04:45] VITALS: PULSE 68
--- NOTE | 2017-01-23 05:36 | NUR ---
NOC / PAIN Slept for a few hours in sitting position, bent over 3 stacked pillows while sitting up in bed. States he "is the most comfortable this way." Reported BTP in noc, prn oxycodone 5mg given x 1. NPO since midnight for US guided percutaneous bx and drain placement this AM. tele: SR 70's w/ PAC/PVC's. Call light within reach, CTM for changes. Addendum: 01/23/17 at 0658 by CHRISTIE PALACIO RN 0650: critical value phoned from lab. total bili 19.6. This is an expected value; overall trending down. not notified at this time. Report to day MEREDITH.
[2017-01-23 05:41] VITALS: BP 145/81; PULSE 68; RESP 18; O2SAT 96
[2017-01-23 06:32] LABS: BASOPHILS % (AUTO) 0.1 % (0-3); EOSINOPHILS % (AUTO) 0.4 % (0-5); MONOCYTES % (AUTO) 4.2 % (4-12); Mean Corpuscular Hemoglobin 30.5 pg (27.0-35.0); Mean Corpuscular Volume 93.2 fL (81-100); Platelet Count 318 bil/L (150-400)
[2017-01-23 06:40] LABS: INR 2.06 ratio
[2017-01-23] MEDS ORDERED: Pantoprazole 40 mg ER24 Tablet PO SCH (07:30)
[2017-01-23] MEDS: Senna-Docusate 8.6-50 mg Tablet PO SCH (07:37)
[2017-01-23] MEDS: Lactulose 20 Gm/30 mL 30 mL Syrup PO SCH (07:37)
[2017-01-23] MEDS: Potassium Chloride 20 mEq SR Tablet PO SCH ×2 (07:45→14:38)
[2017-01-23 08:00] VITALS: PULSE 72
[2017-01-23] MEDS ORDERED: Heparin 10,000 Unit/1,000 mL NS Premix IV ONE (08:20)
[2017-01-23] MEDS ORDERED: fentaNYL-PF 50 mCg/mL 2 mL Inj ONE (08:21)
--- NOTE | 2017-01-23 08:33 | PCM.PNMED ---
Subjective Date of Service Jan 23, 2017 Subjective Pt feeling 'ok' this morning. Difficulty last night obtaining PRN pain medications, but since receiving pain is much improved. NO other acute complaints at this time. Exam Vital Signs Vital Sign - Last Date Time Temp Pulse Resp B/P Pulse Ox O2 Delivery O2 Flow Rate FiO2 01/23/17 05:41 36.2 68 18 145/81 96 Room Air Intake and Output 01/22/17 01/22/17 01/23/17 Cumulative From/Thru 15:00 23:00 07:00 01/20/17 19:32 - 01/23/17 06:00 Intake Total 1090 ml 0 ml 3198 ml Output Total 300 ml 1250 ml Balance 790 ml 0 ml 1948 ml Intake Oral 1090 ml 0 ml 2488 ml IV Total 710 ml Output Urine Total 300 ml 1250 ml # Voids 3 3 6 # Bowel Movements 3 4 Exam General: Alert, Oriented X3, Cooperative, no acute Distress, patient is diffusely jaundiced most pronounced in head and trunk. Eyes: Scleral Icterus Mouth: Mucous Membranes Dry Chest & Lungs: Clear to auscultation & percussion, crackles noted in lung bases. Cardiovascular: Regular Rate/Rhythm Abdomen: Tender, Distended, large mass palpable and left upper quadrant Neurological: Grossly Neurologically Intact, Cranial Nerves 2-12 Intact IVs and Medications Medications Reviewed: Medications were reviewed in detail Lab and Diagnostics Result Diagram: 01/23/17 0543 01/23/17 0543 X-Rays, CTs and MRIs Reportedly CT performed at [facility] currently unable to find in Web ambassador Assessment & Plan 61yo Patient who is been fairly healthy his entire life other than heavy alcohol use and tobacco use disorder as well as 2 spontaneous pneumothorax 20 years prior requiring pleurodesis presents with 6 weeks of abdominal pain and jaundice. # Possible spontaneous bacterial peritonitis/cholangitis. - Patient has pain on palpation of his abdomen but has denied symptoms of acute infection including worsening fever or chills or night sweats or diarrhea - Patient has leukocytosis white blood cell count 14,000, neutrophil predominance of 89% and a pro-calcitonin of 1.1 making bacterial infection possible - Ultrasound-guided paracentesis ordered with recommendations for routine labs including cell count with differential, cytology, LDH, glucose, culture and Gram stain, albumin and total protein at a minimum - Blood cultures ordered and pending -We have initiated Levaquin not specifically for bacterial peritonitis rather for possible coverage of cholangitis, this will be offered good coverage for most gastrointestinal type infections. # Acute liver failure/intraperitoneal masses/biliary obstruction - Patient describes a timeline of approximately 6 weeks of worsening jaundice and abdominal pain - Patient has an extensive history of alcohol ingestion making the likely cause alcoholic hepatitis - Labs include elevated total bilirubin 24.1, AST 155, ALT 159, Alkaline phosphatase 1322, low albumin 2.7, ammonia of 170, INR of 2.04 all point to significant liver injury = Bilirubin is now downward trending. - Patient has an elevated ferritin level of 3841 making iron overload and hemachromatosis possibility - Acute hepatitis panels ordered - ordered Lactulose 20 mg daily given elevated ammonia level with chronic constipation - Abdominal ultrasound ordered, demonstrating multiple hepatic masses likely obstructing as they are involving bile ducts. - Patient was a transfer from [facility] with reported CT imaging showing possible metastatic disease, order placed for community life director to obtain images from [facility] as they are currently not shown in Web ambassador, we continue to await the push of these records so they may be reviewed. Again reaching out [facility] - GI consult and agrees prognosis is poor, suggest initiation of Levaquin mentioned above, project consult was unable to do ERCPs and has little else to offer at this time aside from recommendations of palliation. - I have contacted interventional radiology, a plan to review CT images and may be able to place percutaneous drain to aid in the blockage of bile ducts and hepatic drainage. - This will be revisited in a.m. following review of CT by interventionalists able to do procedure who is not here today - On patient request we will be consulting oncology for further assistance in understanding patient's diagnosis in addition to subsequent recommendations related to possible palliative treatment options - Transfer to tertiary care facility may still be required even for palliative measures such as bile drainage and hepatic stenting she will be unable to conduct this via interventional radiology techniques. - (+)CA-19 is suggestive of primary pancreatic cancer with extensive metastasis. #Refractory abdominal pain - Very likely related to masses noted above, the definitive treatment remains unclear patients certainly need of more aggressive pain management. - Palliative care has been consulted both for further discussion of patient's prognosis and possible courses of action in addition to recommendations for adequate pain management. - We appreciate their assistance in this challenging case. - Significant alleviation of symptoms has been achieved # Notable proteinuria - UA shows protein of 30 with glucose of 100 and given high serum bilirubin also positive ictotest and urine bilirubin - Anticipate this is the result highly elevated bilirubin and the blood, further etiologies considered following treatment of above condition, and ideally resolution of hyperbilirubinemia, are very least improvement. # Likely Anemia of chronic disease - Hemoglobin of 9.3 - Low TIBC of 183 with elevated ferritin of 3040 and normal iron and normal percent saturation # Hypokalemia - Likely secondary to recent anorexia - Potassium rider ordered through peripheral IV - Monitor, replete as needed. # Mildly elevated lipase - Lipase of 90 - Diagnosis of pancreatitis is unlikely as it is usually considered diagnostic at 3 times normal or near 180 - monitor, more likely a result of pancreatic mass. #Hypocoagulatable state - Likely due to liver disease - Transfuse FFT with procedure - NO evidence of active bleeding DVT prophylaxis: Heparin 5000 units 3 times a day given likely coagulopathy from hepatic failure GI prophylaxis: Pantoprazole 40 mg twice a day CODE STATUS: Full code Pain Evaluation: Adequate Pain Control GI Prophylaxis: Proton Pump Inhibitor VTE Prophylaxis: Sub-Q Heparin (Unfractionated) Resuscitation Status: DNR/DNI:Do Not Resuscitate/Intubate Time spent 25 minutes Sawyer Patel DO Jan 23, 2017 08:33
[2017-01-23 09:39] VITALS: BP 120/75; PULSE 81; RESP 18; O2SAT 100
--- NOTE | 2017-01-23 10:19 | NUR ---
Palliative care note D/A: Case discussed today in PC rounds. Pt listed as having no insurance. Dr. Allen now consulting with Dr. Patel about care needs. New efforts proceeding regarding possible transfer to [facility]. This worker discusses with maryanne Brown about ascertaining with [facility] if they have seen pt and are they pursuing Medicaid application. It is thought that pt has a limited life expectancy at this time. Formalized diagnostics will now proceed as pt has agreed to biopsy. Pt may be eligible for fast track for Compassionate Allowances fast track for social security. Msg left for Juancho TAVERAS in oncology center. P: Palliative care to follow as needed. Shahnaz CARRILLO, CCM
--- NOTE | 2017-01-23 11:32 | CCS CONS ---
[facility] [address] [place] [id number] MEDICAL ONCOLOGY NEW PATIENT REPORT PATIENT: LEIGH CAMPUZANO : 1955 MR#: [id number] DATE: 01/20/2017 JOB ID: [id number] DATE: 01/23/2017 CONSULTING PHYSICIAN: The hospitalist team. REASON FOR CONSULT: Hyperbilirubinemia associated with biliary obstruction and metastatic malignancy. HISTORY OF PRESENT ILLNESS: The patient is a 61-year-old gentleman who lives in [place] by himself. He has a son as next of kin and has a previous history of alcoholism. He has not seen any doctors, has said that because he did not have any insurance. He has been symptomatic with weight loss, full nutrition, abdominal pain and has been jaundiced for close to a month. He quit alcohol he says after he noticed the jaundice. He went to the ED in [facility] and was found to have a bilirubin of 24. He had a CT of chest, abdomen and pelvis at [facility] in [place] on January 20, 2017, and based on those findings, was transferred to [facility] for further care. The CT showed several abnormalities including multiple enlarged masses in the liver. There was hepatomegaly with a size of 21 cm. The largest mass was in the left hepatic lobe measuring 7 cm. He also had adenopathy quite severely in the haroldo hepatis and retroperitoneal lymph nodes. He had a small ascites. The CT described the intrahepatic ductal system to be dilated but described the common bile duct not to be dilated. This is contradicted by the ultrasound that was done then here yesterday. There was a mass in the tail of the pancreas measuring 3 cm and two splenic lesions and a 1.8 cm left adrenal mass. The chest portion showed a 3 cm right hilar mass/right hilar adenopathy? and a 1.1 cm subcarinal node. No clear pulmonary mass. A small amount of ascites. Abdominal ultrasound of January 21, 2017 performed here showed the significant dilatation of the extrahepatic duct system with a common bile duct diameter of 22 mm with a suspected mass within the distal biliary duct. There is a mass involving the pancreas measuring 5 cm and interestingly this describes the mass in the head of the pancreas. LABORATORIES: Upon arrival here on January 21, the bilirubin was 23 with direct bilirubin being 14. It has come down slightly without any intervention to now 19. Transaminases are in the order of 130, alkaline phosphatase severely elevated with 1100. Albumin low with 2.6. Creatinine normal with less than 3. Alpha-fetoprotein normal. CA 19-9 severely elevated with 1259. CBC shows a white count of 13, hemoglobin 9, platelets 318. He is coagulopathic with an INR of 2.0 due to liver disease and likely vitamin K deficiency. PAST MEDICAL HISTORY: History of pleurodesis for spontaneous pneumothorax. He has not seen much of any medical care and is otherwise a poor historian. MEDICATIONS: He is on: 1. Pantoprazole. 2. Currently on fentanyl. PHYSICAL EXAMINATION: On examination, his weight is 64 kg. Body mass index of 19. Blood pressure 120/75. O2 sat 100% on room air. He is severely jaundiced but in no apparent distress. He has been afebrile throughout the admission. He is communicating well and he says that his pain is better. He has severe edema in his legs bilaterally that has somewhat improved since admission he says. Lungs show distant breath sounds. Heart regular. Abdomen slightly distended. INR 2.0, PTT 39. CURRENT MEDICATION IN THE HOSPITAL: Pantoprazole, levofloxacin, nicotine, Zofran p.r.n. SOCIAL HISTORY: The patient lives in [place] by himself. 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 He has a longstanding history of smoking and he has been drinking fairly significantly with a pint of vodka per day. Quit about a month ago when he turned jaundiced. ASSESSMENT AND PLAN: A 61-year-old pleasant gentleman with severe jaundice and prior history of alcoholism. Unfortunately he has turned jaundiced a month ago and has not come in until January 20 when he went to the ED of [facility]. He has lost 25 pounds of weight. Has had some abdominal pain. I have reviewed his CT scan that was done at [facility] in [place] on January 20 as well as the abdominal ultrasound that was done on January 21 here. My impression is that he has hyperbilirubinemia more likely due to distal biliary obstruction rather than intrinsic liver disease or liver metastases. He has dilatation of the extrahepatic distal ducts up to 22 mm and there is tumor within the biliary duct and a mass in his pancreas. The CT scan had described a mass in the tail of the pancreas but the ultrasound described this to involve the head of the pancreas as well. He has multiple liver metastases and intrahepatic biliary dilation. There is also retroperitoneal adenopathy as well as right hilar adenopathy in the chest. His CA-19-9 is elevated quite significantly. Overall this is supporting a pancreatic malignancy metastatic to the liver and possibly to the lymph nodes in the chest. I think that a percutaneous drain is suboptimal for this patient and he should have an ERCP with internal stenting which can be both diagnostic and therapeutic. Dr. Fleming from industrial sales manager has seen the patient and stated that the ERCP cannot be done here. I spoke with Dr. Paris and I cancelled the percutaneous drain placement and recommended to the patient, and after discussion with the hospitalist team, to transfer the patient to either [facility] or [facility] for ERCP. He could have also the biopsy done at the same time there to combine endoscopic ultrasound and ERCP. He is currently coagulopathic and this needs to be corrected first anyway and I recommended him taking 10 mg of vitamin K to correct the coagulopathy. The jaundice has been going on for four weeks and he is currently not showing any signs of infection and, therefore, I do not see a need for urgent percutaneous drain which would be a severe intrusion for quality of life with this gentleman who lives by himself. After biliary obstruction has been relieved internally and tissue diagnosis obtained, we can discuss his options of palliative therapy. He does not want aggressive treatment but he does want to prolong his life and he is only 61 years old and has been able to quit alcohol on his own about four weeks ago. I think he will be in a better functional status once the biliary obstruction has been relieved and can have a better decision making. We will see him as an outpatient and I gave him my contact information after his discharge from [place]. I discussed that with him and he is willing to be transferred to [facility] understanding that this would be just a temporary visit to [facility] for procedure and he can then come back and receive his care locally. TIME SPENT: Approximately 1 hour and 25 minutes were spent in counseling and coordination of care.
--- NOTE | 2017-01-23 12:05 | PCM.PNMED ---
Subjective Date of Service Jan 23, 2017 Subjective Patient has abdominal pain again. Exam Vital Signs Vital Sign - Last Date Time Temp Pulse Resp B/P Pulse Ox O2 Delivery O2 Flow Rate FiO2 01/23/17 09:39 36.5 81 18 120/75 100 Room Air Intake and Output 01/22/17 01/22/17 01/23/17 Cumulative From/Thru 15:00 23:00 07:00 01/20/17 19:32 - 01/23/17 06:00 Intake Total 1090 ml 0 ml 3198 ml Output Total 300 ml 1250 ml Balance 790 ml 0 ml 1948 ml Intake Oral 1090 ml 0 ml 2488 ml IV Total 710 ml Output Urine Total 300 ml 1250 ml # Voids 3 3 6 # Bowel Movements 3 4 Exam patient is alert and moderate distress HEENT icterus LUNG decreased breath sounds CV RRR s1s2 Abd soft mild distension moderate upper abd tenderness and bowel sounds present Skin jaundice Lab and Diagnostics Result Diagram: 01/23/17 0543 01/23/17 0543 X-Rays, CTs and MRIs Reportedly CT performed at [facility] currently unable to find in Web ambassador Assessment & Plan 61yo Patient who is been fairly healthy his entire life other than heavy alcohol use and tobacco use disorder as well as 2 spontaneous pneumothorax 20 years prior requiring pleurodesis presents with 6 weeks of abdominal pain and jaundice. Patient found pain is worsen today. In fact his abdominal pain he said is almost gone. He is tolerating his diet. I was informed that radiology did not think the fluid in the abdomen could be tapped safely. LFTs improving. I think what happened was that there was a thickened blockage of the bile ducts from the tumor and there is a transient relief. But now there could be another debris blocking the duct. He can potentially have ERCP done and placed a metallic stent. We do not have this capability here. I spoke with Dr Allen and radiology and I spoke to the pros and cons of stent versus a percutaneous drainage and we all agree ERCP and stenting is better way to go. This would be a palliative treatment. GI Prophylaxis: Proton Pump Inhibitor VTE Prophylaxis: Sub-Q Heparin (Unfractionated) Resuscitation Status: DNR/DNI:Do Not Resuscitate/Intubate Rocky Fleming MD Jan 23, 2017 12:05 predominance of 89% and a pro-calcitonin of 1.1 making bacterial infection possible - Ultrasound-guided paracentesis ordered with recommendations for routine labs including cell count with differential, cytology, LDH, glucose, culture and Gram stain, albumin and total protein at a minimum - Blood cultures ordered and pending -We have initiated Levaquin not specifically for bacterial peritonitis rather for possible coverage of cholangitis, this will be offered good coverage for most gastrointestinal type infections. # Acute liver failure/intraperitoneal masses/biliary obstruction - Patient describes a timeline of approximately 6 weeks of worsening jaundice and abdominal pain - Patient has an extensive history of alcohol ingestion making the likely cause alcoholic hepatitis - Labs include elevated total bilirubin 24.1, AST 155, ALT 159, Alkaline phosphatase 1322, low albumin 2.7, ammonia of 170, INR of 2.04 all point to significant liver injury = Bilirubin is now downward trending. - Patient has an elevated ferritin level of 3841 making iron overload and hemachromatosis possibility - Acute hepatitis panels ordered - ordered Lactulose 20 mg daily given elevated ammonia level with chronic constipation - Abdominal ultrasound ordered, demonstrating multiple hepatic masses likely obstructing as they are involving bile ducts. - Patient was a transfer from [place] with reported CT imaging showing possible metastatic disease, order placed for digital community manager to obtain images from [facility] as they are currently not shown in Web ambassador, we continue to await the push of these records so they may be reviewed. Again reaching out [facility] - GI consult and agrees prognosis is poor, suggest initiation of Levaquin mentioned above, project consult was unable to do ERCPs and has little else to offer at this time aside from recommendations of palliation. - I have contacted interventional radiology, a plan to review CT images and may be able to place percutaneous drain to aid in the blockage of bile ducts and hepatic drainage. - This will be revisited in a.m. following review of CT by interventionalists able to do procedure who is not here today - On patient request we will be consulting oncology for further assistance in understanding patient's diagnosis in addition to subsequent recommendations related to possible palliative treatment options - Transfer to tertiary care facility may still be required even for palliative measures such as bile drainage and hepatic stenting she will be unable to conduct this via interventional radiology techniques. - (+)CA-19 is suggestive of primary pancreatic cancer with extensive metastasis. #Refractory abdominal pain - Very likely related to masses noted above, the definitive treatment remains unclear patients certainly need of more aggressive pain management. - Palliative care has been consulted both for further discussion of patient's prognosis and possible courses of action in addition to recommendations for adequate pain management. - We appreciate their assistance in this challenging case. - Significant alleviation of symptoms has been achieved # Notable proteinuria - UA shows protein of 30 with glucose of 100 and given high serum bilirubin also positive ictotest and urine bilirubin - Anticipate this is the result highly elevated bilirubin and the blood, further etiologies considered following treatment of above condition, and ideally resolution of hyperbilirubinemia, are very least improvement. # Likely Anemia of chronic disease - Hemoglobin of 9.3 - Low TIBC of 183 with elevated ferritin of 3040 and normal iron and normal percent saturation # Hypokalemia - Likely secondary to recent anorexia - Potassium rider ordered through peripheral IV - Monitor, replete as needed. # Mildly elevated lipase - Lipase of 90 - Diagnosis of pancreatitis is unlikely as it is usually considered diagnostic at 3 times normal or near 180 - monitor, more likely a result of pancreatic mass. #Hypocoagulatable state - Likely due to liver disease - Transfuse FFT with procedure - NO evidence of active bleeding DVT prophylaxis: Heparin 5000 units 3 times a day given likely coagulopathy from hepatic failure GI prophylaxis: Pantoprazole 40 mg twice a day CODE STATUS: Full code GI Prophylaxis: Proton Pump Inhibitor VTE Prophylaxis: Sub-Q Heparin (Unfractionated) Resuscitation Status: DNR/DNI:Do Not Resuscitate/Intubate Rocky Fleming MD Jan 23, 2017 12:05
[2017-01-23] MEDS ORDERED: Phytonadione (Adult) 10 MG in Dextrose 5%-Pha MIX 50 ML IV ONE (13:35)
--- NOTE | 2017-01-23 13:37 | PCM.DC.MED ---
Discharge Summary Date of Service Jan 23, 2017 Dates of Hospitalization Date of Hospital Admission Jan 20, 2017 at 19:26 Date of Discharge: Jan 23, 2017 Providers: Admitting Physician: Sawyer Patel DO Primary Care Physician: Anthony Gomez MD Attending Physician: Sawyer Patel DO Diagnosis at Time of Discharge Diagnosis at Time of Discharge # Possible spontaneous bacterial peritonitis/cholangitis. # Acute liver failure/intraperitoneal masses/biliary obstruction #Metastatic cancer #Refractory abdominal pain # Proteinuria # Anemia of chronic disease # Hypokalemia # Mildly elevated lipase #Hypocoagulatable state Consultations Oncology- Dr Allen GI- Dr Fleming Interventional Radiology- Dr. Paris Palliative Care. Procedures XRay, CTs & MRIs Reportedly CT performed at [facility] demonstrates extensive masses likely representing metastatic process involving the liver tail the pancreas and more dispersed through peritoneal cavity. Hilar lymphadenopathy noted in lungs in addition to effusions and bilateral lung bases. Cystic and Ductal dilation extending to base of common bile duct is also noted. Brief History 61yo Patient who is been fairly healthy his entire life other than heavy alcohol use and tobacco use disorder as well as 2 spontaneous pneumothorax 20 years s/p pleurodesis presents with 6 weeks of abdominal pain and jaundice. The patient states that approximately 6 weeks ago he began to notice yellowing of his skin and the abdominal pain. The patient describes the abdominal pain as 12 out of 10 at its worst and lasting 12 hours at its longest however normally approximately 6 hours. The patient states that the duration of the pain has been increasing over the last 6 weeks. The patient describes the pain becoming worse with eating and improves after having a bowel movement. The patient states that the pain seems to move through his abdomen as the food moves through his intestines. The patient denies any history of this previously. Since the patient became jaundiced he has also noticed a firm mass in his epigastrium with some distention of his abdomen. The patient has reportedly lost approximately 20 pounds over the last 6 months. The patient reports drinking upwards to 1 pint of vodka daily for at least the last 5 years prior to this he was a regular daily alcohol consumer. The patient quit drinking when he began to notice the jaundice. Hospital Course # Possible spontaneous bacterial peritonitis/cholangitis. - Patient has pain on palpation of his abdomen but has denied symptoms of acute infection including worsening fever or chills or night sweats or diarrhea - Patient has leukocytosis white blood cell count 14,000, neutrophil predominance of 89% and a pro-calcitonin of 1.1 making bacterial infection possible - Ultrasound-guided paracentesis ordered with recommendations for routine labs including cell count with differential, cytology, LDH, glucose, culture and Gram stain, albumin and total protein at a minimum - Blood cultures ordered and pending -We have initiated Levaquin not specifically for bacterial peritonitis rather for possible coverage of cholangitis, this will be offered good coverage for most gastrointestinal type infections. # Acute liver failure/intraperitoneal masses/biliary obstruction - Patient describes a timeline of approximately 6 weeks of worsening jaundice and abdominal pain - Patient has an extensive history of alcohol ingestion making the likely cause alcoholic hepatitis - Labs include elevated total bilirubin 24.1, AST 155, ALT 159, Alkaline phosphatase 1322, low albumin 2.7, ammonia of 170, INR of 2.04 all point to significant liver injury - Bilirubin is now downward trending, 19 this morning. - Patient has an elevated ferritin level of 3841 making iron overload and hemachromatosis possibility - Acute hepatitis panels ordered - ordered Lactulose 20 mg daily given elevated ammonia level with chronic constipation - Abdominal ultrasound ordered, demonstrating multiple hepatic masses likely obstructing as they are involving bile ducts. - Patient was a transfer from [place] with reported CT imaging showing possible metastatic disease, order placed for critical care unit nurse to obtain images from [place] as they are currently not shown in [facility], we continue to await the push of these records so they may be reviewed. Again reaching out [facility] - GI consult and agrees prognosis is poor, suggest initiation of Levaquin mentioned above, project consult was unable to do ERCPs and has little else to offer at this time aside from recommendations of palliation. - On patient request we will be consulting oncology for further assistance in understanding patient's diagnosis in addition to subsequent recommendations related to possible palliative treatment options - Transfer to tertiary care facility planned at this time for palliative measures such as bile drainage and hepatic stenting - (+)CA-19 is suggestive of primary pancreatic cancer with extensive metastasis. #Refractory abdominal pain - Very likely related to masses noted above, the definitive treatment remains unclear patients certainly need of more aggressive pain management. - Palliative care has been consulted both for further discussion of patient's prognosis and possible courses of action in addition to recommendations for adequate pain management. - We appreciate their assistance in this challenging case. - Significant alleviation of symptoms has been achieved # Notable proteinuria - UA shows protein of 30 with glucose of 100 and given high serum bilirubin also positive ictotest and urine bilirubin - Anticipate this is the result highly elevated bilirubin and the blood, further etiologies considered following treatment of above condition, and ideally resolution of hyperbilirubinemia, are very least improvement. # Likely Anemia of chronic disease - Hemoglobin of 9.3 - Low TIBC of 183 with elevated ferritin of 3040 and normal iron and normal percent saturation # Hypokalemia - Likely secondary to recent anorexia - Potassium rider ordered through peripheral IV, now oral supplement only with good PO intake - Monitor, replete as needed. # Mildly elevated lipase - Lipase of 90 - Diagnosis of pancreatitis is unlikely as it is usually considered diagnostic at 3 times normal or near 180 - monitor, more likely a result of pancreatic mass. #Hypocoagulatable state - Likely due to liver disease - Transfuse FFT with procedure - NO evidence of active bleeding - Pt provided 10mg IV Vit K prior to transfer Exam Vital Signs (Last) Date Time Temp Pulse Resp B/P Pulse Ox O2 Delivery O2 Flow Rate FiO2 01/23/17 09:39 36.5 81 18 120/75 100 Room Air Exam Exam General: Alert, Oriented X3, Cooperative, no acute Distress, patient is diffusely jaundiced most pronounced in head and trunk. Eyes: Scleral Icterus Mouth: Mucous Membranes Dry Chest & Lungs: Clear to auscultation & percussion, crackles noted in lung bases. Cardiovascular: Regular Rate/Rhythm Abdomen: Tender, Distended, large mass palpable and left upper quadrant Neurological: Grossly Neurologically Intact, Cranial Nerves 2-12 Intact Test 01/20/17 01:23 01/20/17 23:00 01/21/17 01:23 01/21/17 01:47 Lactic Acid Level 1.1mmol/L (0.4-2.0) Lipase 90U/L (13-60) Hemoglobin A1c 4.5% (4.8-5.6) Magnesium Level 2.3mg/dL (1.6-2.6) Iron Level 70ug/dL (35-150) Total Iron Binding Capacity 183ug/dL (250-450) Percent Iron Saturation 38%sat (15-50) Unsaturated Iron Binding 112.5ug/dL Ferritin 3841ng/mL (30-400) Procalcitonin 1.10ng/mL (0.00-0.08) Hepatitis A IgM Antibody Negative (Negative) Hepatitis B Surface Antigen Negative (Negative) Hepatitis B Core IgM Antibody Negative (Negative) Hepatitis C Antibody <0.1s/co ratio (0.0-0.9) Hepatitis C Comment Comment (.) Ammonia 170ug/dL (18-53) Urine Color Kailey (YELLOW) Urine Appearance Turbid (CLEAR,HAZY) Urine pH 6.5 (5.0-8.0) Urine Specific [place] >1.050 (1.003-1.035) Urine Protein 30mg/dL (NEG,TRACE) Urine Glucose (UA) 100mg/dL (NEGATIVE) Urine Ketones Tracemg/dL (NEGATIVE) Urine Occult Blood Trace (NEGATIVE) Urine Nitrite Negative (NEGATIVE) Urine Bilirubin Large (NEGATIVE) Urine Ictotest Positive (Negative) Urine Urobilinogen 1.0mg/dL (NORMAL) Urine Leukocyte Esterase Trace (NEGATIVE) Urine RBC 0-2/hpf (0-2) Urine WBC 0-5/hpf (0-5) Urine Epithelial Cells Occasional/hpf (NONE-MOD) Urine Crystals (NONE SEEN) Urine Bacteria Few/hpf (NONE-FEW) Urine Hyaline Casts Occasional/lpf (NONE) Urine Granular Casts None seen (NONE SEEN) Urine Waxy Casts None seen (NONE SEEN) Urine Red Blood Cell Casts None seen (NONE SEEN) Urine White Blood Cell Casts None seen (NONE SEEN) Urine Mucus Present (None Seen) Urine Trichomonas None seen (NONE SEEN) Urine Yeast None (NONE SEEN) Urinalysis Comment None Urine Culture Reflexed Indicated Urine Random Creatinine 106mg/dL (22-328) Urine Random Total Protein 59mg/dL (0-15) Urine Protein/Creatinine Ratio 0.56 (0-200) Test 01/22/17 05:53 01/23/17 05:43 Direct Bilirubin 14.0mg/dL (0.0-0.3) Tumor Marker Alpha Fetoprotein 6.3ng/mL (0.0-8.3) CA 19-9 Antigen 1259U/mL (0-35) White Blood Count 13.5th/mm3 (3.8-10.1) Red Blood Count 2.95mil/mm3 (4.40-5.80) Hemoglobin 9.0g/dL (13.8-17.2) Hematocrit 27.5% (41.0-50.0) Mean Corpuscular Volume 93.2fL (81-100) Mean Corpuscular Hemoglobin 30.5pg (27.0-35.0) Mean Corpuscular Hemoglobin Concent 32.7% (32.0-37.0) Red Cell Distribution Width 19.7% (12.3-15.4) Platelet Count 318bil/L (150-400) Neutrophils (%) (Auto) 89.0% (40-74) Lymphocytes (%) (Auto) 5.2% (14-46) Monocytes (%) (Auto) 4.2% (4-12) Eosinophils (%) (Auto) 0.4% (0-5) Basophils (%) (Auto) 0.1% (0-3) Prothrombin Time 22.4sec (8.1-12.5) Prothromb Time International Ratio 2.06ratio Activated Partial Thromboplast Time 39.0sec (22.8-33.0) Sodium Level 142mEq/L (134-144) Potassium Level 3.4mEq/L (3.5-5.2) Chloride Level 105mEq/L (97-108) Carbon Dioxide Level 22mmol/L (18-29) Blood Urea Nitrogen 19mg/dL (6-24) Creatinine < 0.30mg/dL (0.76-1.27) Estimat Glomerular Filtration Rate 326mL/min (>59) Glucose Level 94mg/dL (60-99) Calcium Level 9.4mg/dL (8.5-10.1) Total Bilirubin 19.6mg/dL (0.0-1.2) Aspartate Amino Transf (AST/SGOT) 131U/L (0-50) Alanine Aminotransferase (ALT/SGPT) 133U/L (0-44) Alkaline Phosphatase 1031U/L (25-160) Total Protein 4.8g/dL (6.4-8.4) Albumin 2.6g/dL (3.4-5.0) Discharge Medications Discharge Medications Multivitamin (Multi Vitamin Daily) 1 Each Tablet 1 EACH PO DAILY (Reported) As needed Ibuprofen (Ibuprofen) 200 Mg Capsule 600 MG PO DAILY PRN PRN For Pain (Reported ) Followup Plan Disposition: Transferred to [facility] for specialist care (Hepatic stenting / ERCP) Follow-up plan Transferred to [facility] for specialist care (Hepatic stenting / ERCP) Follow up with Oncologist follow discharge. Discharge Diet: No restrictions Discharge Activity: No restrictions Follow-up Provider: Shamar Colby MD Follow-up with PCP in: 2 weeks Time spent 50 minutes Sawyer Patel DO Jan 23, 2017 13:37
[2017-01-23] MEDS ORDERED: POTA20TA16 PO (13:41)
[2017-01-23] MEDS ORDERED: FENT50VI8 IV (13:41)
[2017-01-23] MEDS ORDERED: LACT10SO60 PO (13:41)
[2017-01-23] MEDS ORDERED: LEVO750T9 PO (13:41)
[2017-01-23] MEDS ORDERED: OXYC5TAB72 PO (13:41)
--- NOTE | 2017-01-23 13:41 | PCM.DIMED ---
Discharge Instructions Date of Service Jan 23, 2017 Dates of Hospitalization Jan 20, 2017 at 19:26 Discharge Diagnosis Discharge Diagnosis # Possible spontaneous bacterial peritonitis/cholangitis. # Acute liver failure/intraperitoneal masses/biliary obstruction #Metastatic cancer #Refractory abdominal pain # Proteinuria # Anemia of chronic disease # Hypokalemia # Mildly elevated lipase #Hypocoagulatable state Diet Discharge Diet: No restrictions Activity Discharge Activity: No restrictions Patient Instructions Follow-up plan Transferred to [facility] for specialist care (Hepatic stenting / ERCP) Follow up with Oncologist follow discharge. Follow-up Provider: Shamar Colby MD Follow-up with PCP in: 2 weeks Sawyer Patel DO Jan 23, 2017 13:41
[2017-01-23 13:46] VITALS: BP 123/77; PULSE 69; RESP 18; O2SAT 100
--- NOTE | 2017-01-23 13:50 | PCM.PALLBR ---
Palliative Care Recommendation Summary of palliative recommendations: -Symptom management: Pain: 1. D/C fentanyl IV as pt able to take po. 2. Increase oxycodone from 10mg po TID scheduled to 20mg BID. 3. Continue oxycodone 5mg for breakthrough pain, with breakthrough interval to q9povfu as needed. Constipation: 1. Agree with prune juice prn 2. Agree wit lactulose, would titrate up to get daily BM. (Noted today that he had 2 good bowel movements just before I arrived) 3. Add Senna-S 1 po BID to keep strong bowel regimen in place, now that pt will need regular doses of opiates for pain control. -DPOA/Advanced Directives/POLST: 1. Per his wishes 01/22, CODE STATUS changed to DO NOT RESUSCITATE/DO NOT INTUBATE. He is now interested in obtaining tissue diagnosis via biopsy and then pursue possibility of palliative chemotherapy as long as it does not make him severely nauseated. Hospitalist is trying to work with out with oncology and IR -Family/emotional support: 1. Pt identifies his son Alan Vergara ("R.Mikal") as the person who is to be his designated decision maker. He trusts to speak for him on all medical questions. He asked Dr. Sharif to call his son JESSE and tell him all about the bad news and get JESSE's opinion on what to do. 01/21: Per discussion with patient, Dr. Sharif told him that the U/S is definitely showing some kind of widespread cancer, although we cannot know the type unless it is biopsied. We suggested it may be pancreatic or liver primary. We told him that any course of therapy or surgery would be palliative in nature , explaining that it would not cure him, but would possibly postpone his . He wants to "try anything to try almost anything to help me live longer." Specifically, he is willing to have surgery or a stent procedure, even if it means transferring out of the local area to do so. He is also willing to have chemotherapy as long as it did not make him miserable. JESSE was en route to the hospital, driving up from [place]. He answered Dr. Sharif's phone call and is not surprised by the diagnosis and is very congenial and matter of fact. He supports his father's wishes, and states "we'll help him get through this." Pall Care team will follow for effectiveness of pain management until time of likely transfer. Patient Goals: 1. Patient wants to be told the truth about his illness, even if it is unpleasant. 2. Patient would like to be told prognosis when it can be predicted, to better guide treatment decisions. 3. He would accept chemotherapy if it was benign/well-tolerated Additional diagnoses with primary management by the hospitalist service include: # Possible spontaneous bacterial peritonitis/cholangitis. # Acute liver failure/intraperitoneal masses/biliary obstruction # Notable proteinuria # Likely Anemia of chronic disease # Hypokalemia # Mildly elevated lipase Problems: End of Life Preferences Now interested in considering palliative chemotherapy. Does clarify his CODE STATUS which is now DO NOT RESUSCITATE/DO NOT INTUBATE Goals of Care Quality time with his family Disposition To be determined Resuscitation Status Resuscitation Status: DNR/DNI:Do Not Resuscitate/Intubate POLST Updates/Changes Previous POLST?: No Total time 25 minutes; >50% face to face with patient and/or family, providing counselling regarding plans and recommendations, and in care coordination with his/her medical teams. Palliative Brief Note Date of Service Jan 23, [address] Sharif visited pt on morning rounds to reassess his pain control. Prior to visiting, reviewed his updated records in the EMR in detail. He states he had trouble getting breakthrough pain meds in a timely manner overnight. Otherwise, his pain control was good yesterday. When I arrived, he is lying in bed. He is awake, alert and oriented. After speaking further with my partner Dr. Meadows on 01/22, the patient decided he might be interested in palliative chemotherapy if it had milder side effects. He is also willing to go through a tissue biopsy procedure. Per medical team, pt is once again being considered by a tertiary care center down [facility]. On exam, he is a cachectic jaundiced man sitting almost upright in bed, but in no distress. Vital signs noted. Remainder of exam stable with no acute abdominal pain. Labs and imaging studies reviewed in detail. Viola Sharif MD Jan 23, 2017 13:49 Viola Sharif MD Jan 23, 2017 13:49
--- NOTE | 2017-01-23 14:22 | NUR ---
Social Work: Discharge Data: Pt is on day 3 of hospitalization. EMR reviewed. Pt discussed in rounds. states they are attempting to transfer pt to [facility] today. D/C orders are now in. cancelled MANAGER AGENCY order for Chemical Dependency assessment and states they can follow up at [facility] with this concern for pt. No further MANAGER AGENCY needs at this time. MANAGER AGENCY will continue to follow if needs arise. Assessment: Pt who is independent at baseline. Plan: Pt will likely transfer to [facility] today. No further MANAGER AGENCY needs at this time. MANAGER AGENCY will continue to follow if needs arise. NITIN Cavanaugh
[2017-01-23] MEDS ORDERED: 0.9% Sodium Chloride 100 ML ONE (14:31)
[2017-01-23] MEDS: levoFLOXacin 750 mg Tablet PO SCH (16:47)
--- NOTE | 2017-01-23 17:30 | NUR ---
EXTRA OXYCODONE PER DR UMA CARRILLO, GIVE AN EXTRA DOSE OF OXYCODONE 5MG TO AID IN COMFORT WITH TRANSFER TO [facility]. DOSE GIVEN PRIOR TO PT DC'ING OFF UNIT.
--- NOTE | 2017-01-23 17:57 | NUR ---
TRANSFER TO Pt transferred to this afternoon at 1700, off unit in stretcher accompanied by transfer team. Vital signs stable, no indicators of distress. Per MD, extra Oxycodone to be given prior to discharge. All paperwork sent with team. Son here when pt dc'd. PER ENVIRONMENTAL AUDITOR DIANA MORALES, WILL BE CALLING HERE FOR REPORT. AWAITING THEIR CALL. Addendum: 01/23/17 at 1845 by ARMANDO CHRISTIE RN REPORT GIVEN TO REPORT LINE.
[2017-01-23] MEDS ORDERED: oxyCODONE ER 20 mg ER12 Tablet PO SCH (20:30)
--- NOTE | 2017-01-27 15:20 | NUR ---
Palliative care note D/A: Case discussed today with [facility]IN Trivedi in [facility]. Outlined pt needs briefly and indicated lack of insurance. Pt transferred to [facility] on 01/23/17. Had discussed with acute care ORGANIZATIONAL DEVELOPMENT CONSULTANT regarding RCA intervention about M'caid, unable to discern from notes if able to follow up on this issue. Pt may well get referred to [facility] for follow up. Discussed with Juancho potential need to discuss need for expedited work on application for social security disability. Juancho is given name of pt and will look for him. P: No further need for palliative care at this time. Shahnaz CARRILLO, CCM
== END 2017-01-23 17:27 | disposition short-term general hospital (02) | DRG 444 ==
LOC: MPC 19:26
PROVIDERS: ADMIT Family Medicine; ATTEND Family Medicine
DX: K83.1 Obstruction of bile duct (principal); K65.2 Spontaneous bacterial peritonitis; R18.0 Malignant ascites; R64 Cachexia; K83.0 Cholangitis; C78.89 Secondary malignant neoplasm of other digestive organs; K70.10 Alcoholic hepatitis without ascites; E56.1 Deficiency of vitamin K; Z68.1 Body mass index [BMI] 19.9 or less, adult; K70.40 Alcoholic hepatic failure without coma; J44.9 Chronic obstructive pulmonary disease, unspecified; F10.20 Alcohol dependence, uncomplicated; E87.6 Hypokalemia; D63.8 Anemia in other chronic diseases classified elsewhere; Z66 Do not resuscitate; F17.210 Nicotine dependence, cigarettes, uncomplicated